=== PATIENT | female | born 1965 | race Caucasian/White ===

== ENCOUNTER → 2018-07-31 12:04 | Outpatient (CLI) | payer BC, SELFPAY ==
[2018-07-31 13:53] LABS: Absolute Lymphocyte Count 2.29 X10^3/ul (0.83-4.51); Absolute Neutrophil Count 2.5 X10^3/uL (2.0-7.7); Basophil# 0.03 X10^3/uL; Basophil% 0.6 % (0-1); Eosinophil# 0.04 X10^3/uL; Eosinophils% 0.8 % (0-5); Hematocrit 42.7 % (37-47); Hemoglobin 14.2 g/dl (12.0-15.0); Lymphocyte # 2.29 X10^3/ul (4.0); Lymphocyte % 43.9 % (19-41); Mean Corp Hgb Conc 33.3 g/gl (32-36); Mean Corpuscular Hgb 31.6 pg (27.0-32.0); Mean Corpuscular Volume 95.1 fL (81-99); Mean Platelet Vol. 10.2 fl (6.2-12.0); Monocyte# 0.37 X10^3/uL; Monocyte% 7.1 % (0-10); Neutrophil # 2.48 X10^3/uL (2.7-7.7); Neutrophil % 47.4 % (47-70); Platelet Count 226 K/mm3 (150-450); RBC Distribution Width CV 11.8 % (11.6-14.6); RBC Distribution Width SD 40.4 fl (35.1-43.9); Red Blood Count 4.49 M/mm3 (4.2-5.4); White Blood Count 5.2 K/mm3 (4.4-11.0)
[2018-07-31 13:55] LABS: POSITIVE COUNT NO; POSITIVE DIFFERENTIAL NO; POSITIVE MORPHOLOGY NO
[2018-07-31 14:11] LABS: Hemoglobin A1c 5.3 % (4.2-6.3)
[2018-07-31 15:31] LABS: ALB/GLOB Ratio 1.2 RATIO (0.9-2.4); AST(SGOT) 23 U/L (15-37); Alanine Aminotransfer ALT/SGPT 28 U/L (13-56); Albumin, Serum 4.4 g/dL (3.2-5.0); Alkaline Phosphatase 71 U/L (45-117); Anion Gap 10 (5-15); BUN 18 mg/dL (7-18); BUN/Creat Ratio 21.9 RATIO (10-20); Chloride 103 mmol/L (98-107); Creatinine, Serum 0.82 mg/dL (0.55-1.02); EST Glomerular Filtration Rate 78 mL/min (>60); Est Glom Filt Rate - Afr Amer 94 mL/min (>60); Free T3 3.2 pg/mL (2.18-3.98); Globulin 3.7 g/dL (2.2-4.2); Glucose 86 mg/dL (74-106); Magnesium 2.3 mg/dL (1.6-2.6); Potassium 3.9 mmol/L (3.5-5.1); Protein, Total 8.1 g/dL (6.4-8.2); Sodium Level 142 mmol/L (136-145); T4 Free Direct 0.95 ng/dL (0.76-1.46); Thyroid Stim Hormone (TSH) 1.58 uIU/mL (0.358-3.74)
[2018-08-01 11:34] LABS: Vitamin B12 660 pg/mL (211-911)
[2018-08-01 14:41] LABS: SJOGREN'S Anti-SS-A test < 0.2 AI (0.0-0.9); SJOGREN'S Anti-SS-B test 2.9 AI (0.0-0.9)
[2018-08-01 14:44] LABS: ANTINUCLEAR ANTIBODIES DIRECT Positive (Negative)
[2018-08-03 01:58] LABS: Rapid Plasmin Reagin (RPR) NONREACTIVE (NONREACTIVE)
== END ==
PROVIDERS: Family Provider Family Medicine; PCP Family Medicine; Visit Provider Family Medicine
DX: R20.2 Paresthesia of skin (principal)
CPT/HCPCS: 36415; 80053; 82607; 82746; 83036; 83735; 84439; 84443; 84481; 85025; 86038; 86235; 86592

== ENCOUNTER → 2018-08-06 09:37 | Outpatient (CLI) | payer BC, SELFPAY ==
--- NOTE | 2018-08-06 09:45 | RAD_ITS ---
STUDY: X-RAY - ESOPHAGUS (BARIUM SWALLOW) WITH FLUOROSCOPY REASON FOR EXAM: Female, 53 years old. Heartburn. Painful swallowing. History of Sjogren's disease. TECHNIQUE: 22 view(s) of the esophagus were obtained following swallowing of barium. FLUOROSCOPY TIME (if supplied): (0:27) minutes/seconds COMPARISON: Comparison is made with prior study dated April 07, 2017. FINDINGS: There is no demonstrated esophageal foreign body. There is no demonstrated stricture or mucosal abnormality. Normal gastroesophageal junction, without a demonstrated hiatal hernia. The patient ingested a 12 mm tablet of barium without any difficulty. Normal visualized aortic arch and descending thoracic aorta. Normal visualized pulmonary parenchyma. Normal visualized osseous structures of the thorax. RAD/Esophagus Only IMPRESSION: Normal plain film x-ray examination (barium swallow) of the esophagus. Electronically Signed: Ganesh Romero MD at 10:55 EST Tel [phone], Service support ,
== END ==
PROVIDERS: Family Provider Family Medicine; PCP Family Medicine; Referring Provider Family Medicine; Visit Provider Family Medicine
DX: M35.00 Sjogren syndrome, unspecified (principal)
CPT/HCPCS: 74220

== ENCOUNTER → 2020-01-27 09:23 | Outpatient (CLI) | payer BC, SELFPAY | LOC: MFPLAB 09:25 → LABSPEC 09:29 | PROVIDERS: PCP Family Medicine; Referring Provider Family Medicine; Visit Provider Family Medicine | DX: T63.301A Toxic effect of unspecified spider venom, accidental (unintentional), initial encounter (principal) | CPT/HCPCS: 87070; 87205 ==

== ENCOUNTER → 2020-03-10 10:50 | Outpatient (CLI) | payer BC, SELFPAY ==
[2020-02-26 07:37] VITALS: BMI 19.3
--- NOTE | 2020-03-10 10:51 | ECHOD_ITS ---
Reason For Study: Arrhythmia Procedure This was a 2D Doppler, Color Flow transthoracic echocardiogram. Exam performed in department. Left Ventricle Normal LV size. Left ventricular systolic function is normal. The estimated ejection fraction is 60 %. Normal diastology for age. No regional wall motion abnormalities noted. Right Ventricle Normal RV size. Normal systolic function. Atria Normal left atrium. Normal right atrium. Mitral Valve Normal mitral valve. Tricuspid Valve Normal tricuspid valve. Aortic Valve Normal aortic valve. Trisinus/trileaflet aortic valve. Pulmonic Valve Normal pulmonic valve. Great Vessels Normal aortic root. The pulmonary artery is normal size. Normal inferior vena cava. Pericardium/Pleural No pericardial effusion. MMode/2D Measurements & Calculations LVIDd: 4.0 cm IVSd: 0.71 cm Ao root diam: 2.5 cm LVIDs: 2.5 cm LVPWd: 0.67 cm RVDd: 2.9 cm FS: 38.1 % LAV(MOD-bp): 29.6 ml LVAd ap4: 21.2 cm2 SV(MOD-sp4): 34.3 ml LAV(MOD-bp) Indexed: 21.0 ml/m2 EDV(MOD-sp4): 54.8 ml LAV(MOD-sp2): 29.2 ml EDV(sp4-el): 54.3 ml LAV(MOD-sp4): 27.4 ml LVAs ap4: 11.6 cm2 ESV(MOD-sp4): 20.5 ml ESV(sp4-el): 20.4 ml EF(MOD-sp4): 62.5 % EF(sp4-el): 62.4 % SV(sp4-el): 33.9 ml LA A4 area: 12.2 cm2 LA dimension(2D): 2.4 cm RA A4 area: 12.4 cm2 Doppler Measurements & Calculations MV E max ian: 111.7 cm/sec Lat Peak E' Ian: 14.4 cm/sec Med Peak E' Ian: 10.4 cm/sec MV A max ian: 44.9 cm/sec E/E' lat: 7.8 E/E' med: 10.7 MV E/A: 2.5 Ao V2 max: 138.4 cm/sec LV V1 max: 109.4 cm/sec PA V2 max: 82.1 cm/sec Ao max P.7 mmHg LV V1 max P.8 mmHg TR max ian: 225.1 cm/sec TR max P.3 mmHg Interpretation Summary Normal LV size. Left ventricular systolic function is normal. The estimated ejection fraction is 60 %. Normal diastology for age. Ordering Physician: Frank West Referring Physician: Isidro Junior MD Performed By: Analisa Alcantar MACY
== END ==
PROVIDERS: PCP Family Medicine; Referring Provider Internal Medicine Cardiovascular Disease; Visit Provider Internal Medicine Cardiovascular Disease
DX: R00.2 Palpitations (principal)
CPT/HCPCS: 93306

== ENCOUNTER → 2020-08-20 15:42 | Outpatient (CLI) | payer BC, SELFPAY ==
[2020-02-26 07:37] VITALS: BMI 19.3
== END ==
PROVIDERS: PCP Family Medicine; Visit Provider Family Medicine
DX: Z00.00 Encounter for general adult medical examination without abnormal findings (principal); B97.21 SARS-associated coronavirus as the cause of diseases classified elsewhere
CPT/HCPCS: 87635; U0003

== ENCOUNTER → 2020-08-24 16:14 | Outpatient (CLI) | payer BC, SELFPAY ==
[2020-02-26 07:37] VITALS: BMI 19.3
== END ==
PROVIDERS: PCP Family Medicine; Visit Provider Family Medicine
DX: Z00.00 Encounter for general adult medical examination without abnormal findings (principal); B97.21 SARS-associated coronavirus as the cause of diseases classified elsewhere
CPT/HCPCS: 87635; U0003

== ENCOUNTER 2021-10-12 16:21 | Outpatient (CLI) | payer BC, SELFPAY | END 2021-10-12 23:59 | disposition short-term general hospital (02) | PROVIDERS: PCP Family Medicine; Referring Provider Family Medicine; Visit Provider Family Medicine | DX: J32.9 Chronic sinusitis, unspecified (principal) | CPT/HCPCS: 87070; 87205 ==

== ENCOUNTER → 2022-01-18 | Outpatient (CLI) | payer BC, SELFPAY ==
[2022-01-18 17:35] LABS: Hematocrit 40.9 % (37-47); Hemoglobin 14.3 g/dL (12.0-15.0); Mean Corpuscular Hgb 32.1 pg (27.0-32.0); Mean Corpuscular Volume 91.7 fL (81-99); Mean Platelet Vol. 9.6 fl (6.2-12.0); Platelet Count 214 K/mm3 (150-450); RBC Distribution Width CV 11.7 % (11.6-14.6); RBC Distribution Width SD 39.8 fl (35.1-43.9); Red Blood Count 4.46 M/mm3 (4.2-5.4); White Blood Count 6.5 K/mm3 (4.4-11.0)
[2022-01-18 17:55] LABS: Vitamin B12 741 pg/mL (211-911)
[2022-01-18 18:47] LABS: CRP < 2.90 mg/L (0.0-3.0); Ferritin 174 ng/mL (8-252)
== END | disposition home or self-care (01) ==
LOC: MFPLAB 16:51
PROVIDERS: PCP Family Medicine; Visit Provider Family Medicine
DX: R20.2 Paresthesia of skin (principal)
CPT/HCPCS: 36415; 82607; 82728; 82746; 84443; 85027; 86140

== ENCOUNTER → 2023-02-10 | Outpatient (CLI) | payer BC, SELFPAY ==
[2023-02-10 17:47] LABS: Absolute Lymphocyte Count 1.96 X10^3/uL (0.83-4.51); Absolute Neutrophil Count 3.3 X10^3/uL (2.0-7.7); Basophil# 0.03 X10^3/uL; Basophil% 0.5 % (0-1); Eosinophil# 0.04 X10^3/uL; Eosinophils% 0.7 % (0-5); Hematocrit 41.1 % (37-47); Hemoglobin 13.6 g/dL (12.0-15.0); Lymphocyte # 1.96 X10^3/ul (0.83-4.51); Lymphocyte % 33.9 % (19-41); Mean Corp Hgb Conc 33.1 g/dL (32-36); Mean Corpuscular Hgb 31.9 pg (27.0-32.0); Mean Corpuscular Volume 96.3 fL (81-99); Monocyte# 0.41 X10^3/uL; Monocyte% 7.1 % (0-10); NRBC Flagged by Analyzer 0 % (0-5); Neutrophil # 3.33 X10^3/uL (2.7-7.7); Neutrophil % 57.5 % (47-70); Platelet Count 212 K/mm3 (150-450); RBC Distribution Width CV 11.8 % (11.6-14.6); RBC Distribution Width SD 41.4 fl (35.1-43.9); Red Blood Count 4.27 M/mm3 (4.2-5.4); White Blood Count 5.8 K/mm3 (4.4-11.0)
[2023-02-10 18:06] LABS: ALB/GLOB Ratio 1.1 RATIO (0.9-2.4); AST(SGOT) 27 U/L (15-37); Alanine Aminotransfer ALT/SGPT 38 U/L (13-56); Albumin, Serum 3.9 g/dL (3.2-5.0); Alkaline Phosphatase 84 U/L (45-117); Anion Gap 8 (5-15); BUN 32 mg/dL (7-18); BUN/Creat Ratio 26.2 RATIO (10-20); Chloride 105 mmol/L (98-107); Creatinine, Serum 1.22 mg/dL (0.55-1.02); EST Glomerular Filtration Rate 49 mL/min (>60); Est Glom Filt Rate - Afr Amer 59 mL/min (>60); Globulin 3.6 g/dL (2.2-4.2); Glucose 102 mg/dL (74-106); Lipase 76 U/L (13-75); Potassium 3.7 mmol/L (3.5-5.1); Protein, Total 7.5 g/dL (6.4-8.2); Sodium Level 141 mmol/L (136-145)
== END | disposition home or self-care (01) ==
LOC: MFPLAB 15:13
PROVIDERS: PCP Family Medicine; Visit Provider Family Medicine
DX: R14.0 Abdominal distension (gaseous) (principal)
CPT/HCPCS: 36415; 80053; 83690; 85025

== ENCOUNTER → 2023-02-16 | Outpatient (CLI) | payer BC, SELFPAY ==
[2023-02-16 19:14] LABS: ALB/GLOB Ratio 1.1 RATIO (0.9-2.4); AST(SGOT) 29 U/L (15-37); Alanine Aminotransfer ALT/SGPT 31 U/L (13-56); Alkaline Phosphatase 99 U/L (45-117); Anion Gap 6 (5-15); BUN 26 mg/dL (7-18); BUN/Creat Ratio 30.6 RATIO (10-20); Calcium,Total 9.3 mg/dL (8.5-10.1); Chloride 105 mmol/L (98-107); Creatinine, Serum 0.85 mg/dL (0.55-1.02); EST Glomerular Filtration Rate 74 mL/min (>60); Est Glom Filt Rate - Afr Amer 89 mL/min (>60); Globulin 3.6 g/dL (2.2-4.2); Glucose 100 mg/dL (74-106); Lipase 81 U/L (13-75); Potassium 4.3 mmol/L (3.5-5.1); Protein, Total 7.6 g/dL (6.4-8.2); Sodium Level 139 mmol/L (136-145)
== END | disposition home or self-care (01) ==
LOC: MFPLAB 14:52
PROVIDERS: PCP Family Medicine; Visit Provider Family Medicine
DX: R10.13 Epigastric pain (principal)
CPT/HCPCS: 36415; 80053; 83690

== ENCOUNTER → 2023-04-11 | Outpatient (CLI) | payer BC, SELFPAY ==
--- NOTE | 2023-04-11 08:03 | RAD_ITS ---
PROCEDURE: Upper GI with Small Bowel Follow Through DATE OF EXAMINATION: April 11, 2023. INDICATION: Female, 58 years old. Upper abdominal pain. History of gastroesophageal reflux. FLUOROSCOPY TIME (if supplied): (0:47) minutes/seconds. 38.92 mGy. 12 images were obtained. TECHNIQUE: Radiographic and fluoroscopic images of the distal esophagus, stomach, and entire small intestine were obtained following the oral ingestion of barium. COMPARISON: None. FINDINGS: The procedure rn film of the abdomen demonstrates a normal bowel gas pattern. There are no abnormal calcifications or organomegaly demonstrated. The visualized osseous structures are normal. The esophagus is unremarkable. No evidence of obstruction. No evidence of gastroesophageal reflux. Stomach and duodenum are unremarkable. A single contrast small bowel follow through exam demonstrates the small bowel to have no evidence for stricture, ulceration or mass. The transit time is normal at . RAD/Upper GI/w Small Bowel IMPRESSION: 1. Unremarkable upper GI and small bowel follow-through examination. Electronically Signed: Ganesh Romero MD at 10:36 EDT ,
== END | disposition home or self-care (01) ==
PROVIDERS: PCP Family Medicine; Referring Provider Family Medicine; Visit Provider Family Medicine
DX: R10.13 Epigastric pain (principal)
CPT/HCPCS: 74246; 74248

== ENCOUNTER → 2024-07-10 | Outpatient (CLI) | payer BC, SELFPAY ==
[2024-07-10 17:50] LABS: Vitamin D,25 Hydroxy 55.9 ng/mL
== END | disposition home or self-care (01) ==
LOC: MFPLAB 14:57
PROVIDERS: PCP Family Medicine; Referring Provider Nurse Practitioner Family; Visit Provider Nurse Practitioner Family
DX: R53.83 Other fatigue (principal)
CPT/HCPCS: 36415; 82306

== ENCOUNTER 2024-12-09 19:03 | Emergency (ER) | payer BC, SELFPAY ==
[2024-12-09 19:05] VITALS: BP 126/82; PULSE 85; RESP 18; TEMP 36.4; O2SAT 100; BMI 19.1
--- NOTE | 2024-12-09 19:10 | EKG12_ITS ---
Test Reason : DYSRHYTHMIA Blood Pressure : */* mmHG Vent. Rate : 71 BPM Atrial Rate : 71 BPM P-R Int : 158 ms QRS Dur : 70 ms QT Int : 370 ms P-R-T Axes : 84 86 55 degrees QTcB Int : 402 ms Sinus rhythm with marked sinus arrhythmia Otherwise normal ECG Confirmed by Luis Griffin ([id number]), general expeditor MEDHAT CALHOUN ([id number]) on 12/10/2024 10:59:26 AM Referred By: TL Confirmed By: Luis Griffin
--- NOTE | 2024-12-09 19:38 | EX.ED.DYSGE1 ---
HPI History of Present Illness Chief Complaint: Palpitations Narrative Narrative: 59-year-old female past medical history of Sjogren's disease, presents with heart palpitations that she started experiencing almost an hour ago. She states that she was playing pickle ball and was playing the last game when she started to feel her heart racing. It would then skip a beat. At times in the past, she has had instances when her heart would skip a beat, but then will get back on track. Today, she noticed that it would beat fast, then skip every other beat, and sometimes it would be a long pause. She has worn Holter monitors in the past and states that they never really found anything. She denies any chest pain associated with it, no shortness of breath, no leg swelling. No recent fevers or chills, no nausea or vomiting, no diarrhea. There are no exacerbating or alleviating factors to it. However, she did state that sometimes when her heart did this in the past it was because she had a low potassium. [facility] Medical History (Updated 12/09/24 @ 20:52 by Nelson Waldrop MD) GERD (gastroesophageal reflux disease) Sleep disorder Anxiety Raynauds syndrome IBS (irritable bowel syndrome) Thoracic outlet syndrome Sjogren's disease Hyperlipidemia Home Medications ?Medication ?Instructions ?Recorded ?Last Taken ?Type B-complex with vitamin C 1 tab PO DAILY 02/24/20 Unknown History biotin 1 mg capsule 1 mg PO DAILY 02/24/20 Unknown History cholecalciferol (vitamin D3) 25 25 mcg PO DAILY 02/24/20 Unknown History mcg (1,000 unit) capsule collagen 500 mg PO 1XD 02/24/20 Unknown History magnesium oxide 200 mg PO DAILY 02/24/20 Unknown History fluticasone propionate 50 1 spray intranasal BID PRN allergy 02/26/20 Unknown History mcg/actuation nasal symptoms spray,suspension Allergy/AdvReac Type Severity Reaction Status Date / Time codeine Allergy Other Verified 12/09/24 19:05 Tetracyclines Allergy Other Verified 12/09/24 19:05 Family History Father CAD (coronary artery disease) Grandfather Myocardial infarction, Onset Age: 70 paternal Grandmother CVA (cerebral vascular accident) paternal Grandfather CVA (cerebral vascular accident) maternal Social History Smoking Status: Never smoker ROS ROS ED ROS Narrative Constitutional: No fever, no chills. HEENT: No sore throat. No neck pain. No loss of vision. No rhinorrhea. Cardiovascular: No chest pain. Positive palpitations. No pedal edema. Respiratory: No cough, no shortness of breath. Abdominal: No abdominal pain. No nausea. No vomiting. No diarrhea. EXAM Physical Exam Narrative Exam Narrative: Afebrile. Vital signs noted. Nontoxic-appearing. Cardiovascular examination reveals a regular rate and rhythm. Lungs are clear to auscultation bilaterally. Abdomen is soft, nontender without guarding or rebound. Neurological examination is nonfocal, nonlateralizing. No noted pedal edema on examination. Const Vital Signs: 12/09/24 19:04 12/09/24 19:05 Temperature 97.6 F L Temperature Source Temporal Pulse Rate 85 Respiratory Rate 18 Respiratory Effort Normal Non-Labored Blood Pressure 126/82 H Blood Pressure Mean 96 Pulse Ox 100 Oxygen Delivery Method Room Air MDM MDM MDM Narrative Medical decision making narrative: Differential diagnosis includes but not limited to sinus tachycardia versus atrial fibrillation versus dehydration versus intravascular volume depletion versus other electrolyte imbalance. EKG was obtained and interpreted by myself independently as normal sinus rhythm at 71 bpm with sinus arrhythmia but no acute ST changes. No STEMI. No PVCs. I will check her electrolytes as well as a CBC to make sure she is not anemic. I do not feel she needs a troponin because she is not having chest pain. I will also check a magnesium as well. I do not feel she requires IV fluids currently. I have very low suspicion for pulmonary embolism because she is not tachycardic and she is not hypoxic. She is not experiencing any chest pain or pleuritic chest pain for that matter. Chest x-ray in 1 view interpreted by myself independently shows no evidence of pneumonia or pneumothorax. I reviewed the radiology report as well which confirms my independent interpretation. Review of her laboratory work shows normal white count of 6.1 with hemoglobin 13.3, platelet count normal at 208. Electrolyte panel is grossly unremarkable with a normal sodium of 141 and potassium normal 3.6. Magnesium normal at 2.0. LFTs grossly unremarkable. At this point in time, I feel she can be discharged to follow-up with her air value tester and/or her primary care provider. She inquired about vitamin B12 testing, and was referred back to her primary care provider for this nonemergent test. Return instructions to the emergency department were reviewed. Disposition is discharged in stable condition. History & Record Review Discussion w/independent historian: Patient Lab Data Attestation: I reviewed the patient's lab results. Labs: Laboratory Results - last 24 hr 12/09/24 19:45 WBC 6.1 RBC 4.26 Hgb 13.3 Hct 38.8 MCV 91.1 MCH 31.2 MCHC 34.3 RDW Std Deviation 40.4 RDW Coeff of Marie 12.0 Plt Count 208 MPV 9.3 Immature Gran % (Auto) 0.200 Neut % (Auto) 62.4 Lymph % (Auto) 28.5 Mitchell % (Auto) 7.9 Eos % (Auto) 0.5 Baso % (Auto) 0.5 Absolute Neuts (auto) 3.8 Absolute Lymphs (auto) 1.73 Nucleated RBC % 0 Sodium 141 Potassium 3.6 Chloride 103 Carbon Dioxide 25.1 Anion Gap 12 BUN 17 Creatinine 0.92 Estim Creat Clear Calc 48.89 L Est GFR (MDRD) Non-Af 72 BUN/Creatinine Ratio 18.8 Glucose 100 H Calcium 9.3 Magnesium 2.0 Total Bilirubin 0.30 AST 30 ALT 19 Alkaline Phosphatase 78 Total Protein 7.2 Albumin 4.5 Globulin 2.7 Albumin/Globulin Ratio 1.7 Radiography Chest X-Ray - ED: 1 View, Read by ED Physician and Read by Radiologist Diagnostic Testing: Clinical Impression(s) from Imaging Studies Chest X-Ray 12/09/24 19:47 IMPRESSION: COPD. NO ACUTE FINDINGS. Reading Location: [facility] Discharge Plan Triage Chief Complaint: Palpitations ED Provider: Nelson Waldrop Dx/Rx/DC Orders Clinical Impression: Palpitations, Sinus arrhythmia Instructions: ED About Arrhythmias, ED Palpitations Prescriptions: No Action magnesium oxide 400 mg magnesium tablet 200 mg PO DAILY collagen 500 mg PO 1XD B-complex with vitamin C Tablet 1 tab PO DAILY cholecalciferol (vitamin D3) 25 mcg (1,000 unit) capsule 25 mcg PO DAILY biotin 1 mg capsule 1 mg PO DAILY fluticasone propionate 50 mcg/actuation spray,suspension 1 spray INTRANASAL BID PRN (Reason: allergy symptoms) Rx Instructions: administer into each nostril Primary Care Provider: Isidro Junior Referrals: Frank West MD [Med Staff - Active Staff] - As soon as possible Isidro Junior MD [Primary Care Provider] - 3-5 Days if not improving Activity Restrictions/Additional Instructions: Return to the emergency department with sustained elevated heart rate, new or worsening symptoms. Print Language: Omani Disposition Disposition: Home, Self Care
--- NOTE | 2024-12-09 19:47 | RAD_ITS ---
PROCEDURE: CHEST 1 VIEW (PORTABLE) REASON FOR EXAM: 59-year-old female, DYSRHYTHMIA TECHNIQUE: Frontal view of the chest. COMPARISON: None. FINDINGS: The heart size is normal. Findings of COPD/emphysema. No focal consolidation, pleural effusion or pneumothorax. The bones are unremarkable. RAD/Chest 1 View (Portable) IMPRESSION: COPD. NO ACUTE FINDINGS. Reading Location: [id number]
[2024-12-09 20:03] LABS: Absolute Lymphocyte Count 1.73 X10^3/uL (0.83-4.51); Absolute Neutrophil Count 3.8 X10^3/uL (2.0-7.7); Basophil# 0.03 X10^3/uL; Basophil% 0.5 % (0-1); Eosinophil# 0.03 X10^3/uL; Eosinophils% 0.5 % (0-5); Hematocrit 38.8 % (37-47); Hemoglobin 13.3 g/dL (12.0-15.0); Lymphocyte # 1.73 X10^3/ul (0.83-4.51); Lymphocyte % 28.5 % (19-41); Mean Corp Hgb Conc 34.3 g/dL (32-36); Mean Corpuscular Hgb 31.2 pg (27.0-32.0); Mean Corpuscular Volume 91.1 fL (81-99); Mean Platelet Vol. 9.3 fl (6.2-12.0); Monocyte# 0.48 X10^3/uL; Monocyte% 7.9 % (0-10); NRBC Flagged by Analyzer 0 % (0-5); Neutrophil % 62.4 % (47-70); Platelet Count 208 K/mm3 (150-450); RBC Distribution Width SD 40.4 fl (35.1-43.9); Red Blood Count 4.26 M/mm3 (4.2-5.4); White Blood Count 6.1 K/mm3 (4.4-11.0)
[2024-12-09 20:26] LABS: ALB/GLOB Ratio 1.7 RATIO (0.9-2.4); AST(SGOT) 30 U/L (<=31); Alanine Aminotransfer ALT/SGPT 19 U/L (<=34); Albumin, Serum 4.5 g/dL (3.5-5.0); Alkaline Phosphatase 78 U/L (35-104); Anion Gap 12 (5-15); BUN 17 mg/dL (4-19); BUN/Creat Ratio 18.8 RATIO (10-20); Calcium,Total 9.3 mg/dL (7.6-11.0); Carbon Dioxide 25.1 mmol/L (21.0-32.0); Chloride 103 mmol/L (98-108); Creatinine, Serum 0.92 mg/dL (0.70-1.20); EST Glomerular Filtration Rate 72 (>60); Estimated Creatinine Clearance 48.89 ml/min (50-250); Globulin 2.7 g/dL (2.2-4.2); Glucose 100 mg/dL (70-99); Potassium 3.6 mmol/L (3.3-5.1); Protein, Total 7.2 g/dL (5.9-8.4); Sodium Level 141 mmol/L (133-145)
[2024-12-09 21:11] VITALS: BP 107/64; PULSE 61; RESP 18; TEMP 36.7; O2SAT 99
== END 2024-12-09 21:12 | disposition home or self-care (01) ==
PROVIDERS: Emergency Provider Emergency Medicine; PCP Family Medicine; Visit Provider Emergency Medicine
DX: I49.8 Other specified cardiac arrhythmias (principal); R00.2 Palpitations; M35.00 Sjogren syndrome, unspecified
CPT/HCPCS: 71045; 80053; 83735; 85025; 93005; 99284; A4216